=== PATIENT | male | born 1965 | race Caucasian/White ===

== ENCOUNTER 2020-11-29 13:42 | Emergency (ER) | payer OTHER, SELFPAY ==
[2020-11-29 14:05] VITALS: BP 141/82; PULSE 95; RESP 18; TEMP 37.2; O2SAT 97; BMI 26.4
--- NOTE | 2020-11-29 15:28 | ED.GENADULT ---
HPI - General Adult General Chief complaint: General Medical Stated complaint: no taste Time Seen by Provider: 11/29/20 15:01 Source: patient Mode of arrival: ambulatory Limitations: no limitations History of Present Illness HPI narrative: 55 y/o male with history of HTN presents to the ED c/o loss of sense of taste and smell that he noticed when he woke up this morning. 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 He denies any known COVID exposure and always wears his mask. He feels great except for his loss of taste and smell. No SOB, chest pain, fever, chills, N/V/D. MD complaint: loss of sense of taste and smell Onset (ago): hour(s) (8) Location: face and mouth Radiation: non-radiation Severity: mild Relieving factors: none Exacerbating factors: none Associated symptoms: denies other symptoms Treatments prior to arrival: none Related Data Allergies Allergy/AdvReac Type Severity Reaction Status Date / Time No Known Allergies Allergy Verified 11/29/20 14:05 Review of Systems Review of Systems: Constitutional: No Fever, No Chills ENT/Mouth: No sore throat, No Rhinorrhea Cardiovascular: No Chest Pain, No SOB Respiratory: No Cough, No Sputum Gastrointestinal: No Nausea, No Vomiting, No Diarrhea, No abdominal Pain Genitourinary: No Dysuria, No Urinary Frequency, No Hematuria Musculoskeletal: No joint pain, No Myalgias Skin: No Skin Lesions, No rash Neuro: No Weakness, No Numbness, No Dizziness, No Headache Heme/Lymph: No Lymphadenopathy PMFSH Past Medical History Medical History (Updated 11/29/20 @ 15:31 by OBEY Pressley) HTN (hypertension) Social History Social History Advance Directives: No Physical Exam Vital Signs: Vital Signs: Last Vital Signs Temp 98.9 F 11/29/20 14:05 Pulse 95 11/29/20 14:05 Resp 18 11/29/20 14:05 BP 141/82 H 11/29/20 14:05 Pulse Ox 97 11/29/20 14:05 Body Mass Index 26.4 Appearance: Alert. Oriented X3. No acute distress. HEENT: normal inspection CVS: Normal heart rate and rhythm. Pulses normal. Respiratory: No respiratory distress. Lungs CTAB Skin: Skin warm and dry. Normal skin color. Normal skin turgor. No rashes. Extremities: atraumatic, no edema Neuro: Oriented X 3. No motor deficit. No sensory deficit. Course Course Course Narrative: 55 y/o male presenting with isolated symptoms of loss of sense of taste and smell that started today. Symptoms are concerning for COVID however given they are new onset today there may not be enough viral load to detect the virus when tested today. Patient has been counseled on this concern and possibility of a false negative. Encouraged to get retested if symptoms persist. Discharge Plan Discharge Clinical Impression: Anosmia Patient Disposition: Home, Self-Care Instructions: COVID-19 (Coronavirus Disease 2019) (ED) Additional Instructions: You were tested for COVID-19 today. We will call you with the results this afternoon. Even if your results are NEGATIVE, it could be because your symptoms just started today and there may not be enough virus in your nose to detect. Recommend getting retested if it is negative today. Interventions: ED Discharge Assessment Last Done: 11/29/20 15:45 Discharge Date/Time: 11/29/20 15:53
[2020-11-29 15:55] LABS: Influenza A PCR NEGATIVE (Negative); Influenza B PCR NEGATIVE (Negative); Resp Syncy Virus RNA Qual PCR NEGATIVE (Negative); SARS COV2 PCR INHOUSE POSITIVE (Negative)
== END 2020-11-29 15:53 | disposition home or self-care (01) ==
PROVIDERS: Physician Assistant; Emergency Provider Emergency Medicine Emergency Medical Services; PCP Internal Medicine
DX: U07.1 COVID-19 (principal); R43.0 Anosmia; I10 Essential (primary) hypertension
CPT/HCPCS: 0241U; 36415; 99283

== ENCOUNTER 2020-12-11 08:59 | Outpatient (REF) | payer OTHER, SELFPAY ==
[2020-12-11 09:27] LABS: COVID-19 Test Positive (Negative); IDNOW Serial# 55D5AD1C
== END 2020-12-11 09:00 | disposition home or self-care (01) ==
LOC: HO.LAB 08:59
PROVIDERS: Visit Provider Internal Medicine
DX: Z20.822 Contact with and (suspected) exposure to COVID-19 (principal)
CPT/HCPCS: 36415; 87635; C9803

== ENCOUNTER 2021-03-31 11:32 | Outpatient (REF) | payer OTHER, SELFPAY | END 2021-03-31 11:33 | disposition home or self-care (01) | LOC: HO.LAB 11:32 | PROVIDERS: PCP Internal Medicine; Visit Provider Internal Medicine | DX: Z20.822 Contact with and (suspected) exposure to COVID-19 (principal) | CPT/HCPCS: C9803; U0003; U0005 ==

== ENCOUNTER 2021-11-13 18:09 | Emergency (ER) | payer OTHER, SELFPAY ==
[2021-11-13 18:32] VITALS: BP 159/91; PULSE 79; RESP 18; TEMP 36.9; O2SAT 98; BMI 26.4
[2021-11-13 18:41] LABS: MANUAL DIFF FLAG NO
[2021-11-13 18:44] LABS: Basophils Percent Auto 0.4 % (0-2); Eosinophils Absolute Auto 0.1 X10*3/uL (0.0-0.4); Eosinophils Percent Auto 1.3 % (0-4); Hematocrit 38.9 % (42.0-52.0); Hemoglobin 13.5 g/dl (14.0-18.0); Imm Gran Abs Auto 0.02 X10*3/uL (0.00-0.03); Imm Gran Pct Auto 0.2 % (0.0-0.4); Lymphocytes Absolute Auto 3.4 X10*3/uL (1.2-4.9); Lymphocytes Percent Auto 38.4 % (20-40); Mean Corpuscular HGB Conc 34.7 g/dl (31.0-36.0); Mean Corpuscular Hemoglobin 29.9 pg (27.0-33.0); Mean Corpuscular Volume 86.3 fL (80.0-98.0); Mean Platelet Volume 9.8 fL (9.4-12.4); Monocytes Absolute Auto 0.5 X10*3/uL (0.1-1.2); Monocytes Percent Auto 5.6 % (2-11); Neutrophils Absolute Auto 4.8 x10*3/uL (2.0-8.3); Neutrophils Percent Auto 54.1 % (45-73); Platelet Count 317 X10*3/uL (160-400); Red Blood Count 4.51 X10*6/uL (4.60-5.80); White Blood Count 8.9 X10*3/uL (4.8-10.8)
[2021-11-13 18:59] LABS: Alanine Aminotransferase 21 U/L (0-40); Albumin Level 4.4 g/dL (3.5-5.0); Alkaline Phosphatase 65 U/L (39-117); Anion Gap 12 (12-20); Aspartate Amino Transferase 20 U/L (5-37); Bilirubin Direct < 0.2 mg/dL (0.0-0.5); Bilirubin Total 0.3 mg/dL (0.0-1.0); Blood Urea Nitrogen 14 mg/dL (9-16); Calcium 9.4 mg/dL (8.4-10.2); Carbon Dioxide 27 mmol/L (22-29); Chloride 102 mmol/L (96-108); Creatinine Clr Calc Pharmacy 84.2; Estimated Glomerular Filt Rate > 60; Glucose Random 222 mg/dL (60-115); Lipase 59 U/L (8-78); Potassium 3.7 mmol/L (3.3-5.1); Sodium 137 mmol/L (135-145); Total Protein 7.6 g/dL (6.5-8.0)
--- NOTE | 2021-11-13 22:00 | ED_ITS ---
HPI - Abdominal Pain General Chief Complaint: Abdominal Pain Stated Complaint: prolonged abd pain rt Time Seen by Provider: 11/13/21 21:52 Related Data Previous Rx's Medication Instructions Recorded hyoscyamine sulfate 0.125 mg 0.125 mg PO QID #7 tab 11/14/21 disintegrating tablet Allergies Allergy/AdvReac Type Severity Reaction Status Date / Time No Known Allergies Allergy Verified 11/13/21 18:32 [facility] Past Medical History Medical History (Updated 11/14/21 @ 00:09 by Koki Arango MD) HTN (hypertension) Social History Social History Advance Directives: No Physical Exam ED Vital Signs: Vital Signs - 24 hr 11/13/21 18:32 Temperature 98.5 F Pulse Rate 79 Respiratory Rate 18 Blood Pressure 159/91 H Pulse Oximetry 98 BMI result Body Mass Index 26.4 Course Course Course Narrative: I discussed the labs with the patient, at this time, patient's physical exam is benign, no need for imaging. Urinalysis negative for UTI and blood, ureterolithiasis not suspected. MDM - Abdominal Pain Lab Data Result diagrams: 11/13/21 18:37 11/13/21 18:37 Labs: Lab Results 11/13/21 11/13/21 11/13/21 Range/Units 18:37 18:37 23:21 WBC 8.9 (4.8-10.8) X10*3/uL RBC 4.51 L (4.60-5.80) X10*6/uL Hgb 13.5 L (14.0-18.0) g/dl Hct 38.9 L (42.0-52.0) % MCV 86.3 (80.0-98.0) fL MCH 29.9 (27.0-33.0) pg MCHC 34.7 (31.0-36.0) g/dl RDW 12.0 (11.0-16.0) % Plt Count 317 (160-400) X10*3/uL MPV 9.8 (9.4-12.4) fL Immature Gran % (Auto) 0.2 (0.0-0.4) % Neut % (Auto) 54.1 (45-73) % Lymph % (Auto) 38.4 (20-40) % [place] % (Auto) 5.6 (2-11) % Eos % (Auto) 1.3 (0-4) % Baso % (Auto) 0.4 (0-2) % Lymph # (Auto) 3.4 (1.2-4.9) X10*3/uL [place] # (Auto) 0.5 (0.1-1.2) X10*3/uL Eos # (Auto) 0.1 (0.0-0.4) X10*3/uL Baso # (Auto) 0.0 (0.0-0.2) X10*3/uL Abs Immat Gran (auto) 0.02 (0.00-0.03) X10*3/uL Absolute Neuts (auto) 4.8 (2.0-8.3) x10*3/uL Absolute Nucleated RBC 0.000 (0.0-0.012) X10*3/uL Nucleated RBC % (auto) 0.0 (0.0-0.2) /100WBC Sodium 137 (135-145) mmol/L Potassium 3.7 (3.3-5.1) mmol/L Chloride 102 (96-108) mmol/L Carbon Dioxide 27 (22-29) mmol/L Anion Gap 12 (12-20) BUN 14 (9-16) mg/dL Creatinine 1.08 (0.5-1.4) mg/dL Estim Creat Clear Calc 84.2 Estimated GFR > 60 Random Glucose 222 H (60-115) mg/dL Calcium 9.4 (8.4-10.2) mg/dL Total Bilirubin 0.3 (0.0-1.0) mg/dL Direct Bilirubin < 0.2 (0.0-0.5) mg/dL AST 20 (5-37) U/L ALT 21 (0-40) U/L Alkaline Phosphatase 65 (39-117) U/L Total Protein 7.6 (6.5-8.0) g/dL Albumin 4.4 (3.5-5.0) g/dL Lipase 59 (8-78) U/L Urine Color YELLOW Urine Appearance HAZY Urine pH 7.0 (5.0-8.0) Ur Specific [place] 1.015 (1.005-1.025) Urine Protein NEG (NEG-TRACE) MG/DL Urine Glucose (UA) NEG (NEG) MG/DL Urine Ketones NEG (NEG) MG/DL Urine Blood NEG (NEG) Urine Nitrite NEG (NEG) Ur Leukocyte Esterase NEG (NEG) Discharge Plan Discharge Clinical Impression: Abdominal pain Patient Disposition: Home, Self-Care Instructions: Abdominal Pain (ED) Additional Instructions: Please follow-up with your primary care physician tomorrow. If you have any worsening or new symptoms, please return to the emergency room or call 911 Prescriptions: New hyoscyamine sulfate 0.125 mg tablet,disintegrating 0.125 mg PO QID Qty: 7 0RF
[2021-11-13 23:35] LABS: Appearance Urine HAZY; Color Urine YELLOW; Glucose Urine UA NEG (NEG); Leukocyte Esterase Urine NEG (NEG); Nitrite Urine NEG (NEG); Specific Gravity - Urine 1.015 (1.005-1.025); Urine Blood NEG (NEG); Urine Ketones NEG (NEG); Urine Protein NEG (NEG-TRACE)
[2021-11-14 00:25] VITALS: BP 134/85; PULSE 65; RESP 16; TEMP 36.7; O2SAT 99
== END 2021-11-14 00:30 | disposition home or self-care (01) ==
PROVIDERS: Emergency Provider Emergency Medicine
DX: R10.9 Unspecified abdominal pain (principal); I10 Essential (primary) hypertension
CPT/HCPCS: 36415; 80048; 80076; 81003; 83690; 85025; 99283; 99284

== ENCOUNTER 2022-03-30 16:33 | Emergency (ER) | payer OTHER, SELFPAY ==
--- NOTE | ~2022-03-30 | XR_ITS ---
EXAMINATION: XR CHEST CLINICAL INFORMATION: Chest pain and cough COMPARISON: None TECHNIQUE: 2 views of the chest were obtained. FINDINGS: Cardiac silhouette is normal in size. The lungs are well aerated. There is no lobar consolidation. No pleural effusion or pneumothorax. No acute osseous abnormality. XR/XR chest 2V IMPRESSION: No acute pulmonary pathology.
[2022-03-30 17:42] VITALS: BP 148/89; PULSE 72; RESP 18; TEMP 36.6; O2SAT 98; BMI 25.0
--- NOTE | 2022-03-30 17:45 | ECG_ITS ---
Test Reason : CHEST PAIN Blood Pressure : / mmHG Vent. Rate : 063 BPM Atrial Rate : 063 BPM P-R Int : 160 ms QRS Dur : 108 ms QT Int : 424 ms P-R-T Axes : 041 -06 013 degrees QTc Int : 433 ms Normal sinus rhythm Incomplete right bundle branch block Borderline ECG No previous ECGs available Referred By: Generic ED Physician Electronically Signed By:SHAQUILLE BARRIOS
[2022-03-30 18:01] LABS: MANUAL DIFF FLAG NO
[2022-03-30 18:05] LABS: Basophils Absolute Auto 0.1 X10*3/uL (0.0-0.2); Basophils Percent Auto 0.7 % (0-2); Eosinophils Absolute Auto 0.1 X10*3/uL (0.0-0.4); Eosinophils Percent Auto 0.5 % (0-4); Hematocrit 39.4 % (42.0-52.0); Hemoglobin 13.4 g/dl (14.0-18.0); Imm Gran Abs Auto 0.04 X10*3/uL (0.00-0.03); Imm Gran Pct Auto 0.3 % (0.0-0.4); Mean Corpuscular Hemoglobin 29.1 pg (27.0-33.0); Mean Corpuscular Volume 85.5 fL (80.0-98.0); Monocytes Percent Auto 15.4 % (2-11); Neutrophils Absolute Auto 2.4 x10*3/uL (2.0-8.3); Neutrophils Percent Auto 18.1 % (45-73); Red Blood Count 4.61 X10*6/uL (4.60-5.80); Red Cell Distribution Width 11.8 % (11.0-16.0); SCAN SMEAR FLAG 1; WBC ABN SCTR 1
[2022-03-30 18:06] LABS: Platelet Count 79 X10*3/uL (160-400)
[2022-03-30 18:07] LABS: Lymphocytes Absolute Auto 8.6 X10*3/uL (1.2-4.9); WBC ABN SCTR FOR CBC 1
[2022-03-30 18:16] LABS: Anion Gap 13 (12-20); Blood Urea Nitrogen 23 mg/dL (9-16); Calcium 8.6 mg/dL (8.4-10.2); Carbon Dioxide 27 mmol/L (22-29); Chloride 103 mmol/L (96-108); Creatinine Clr Calc Pharmacy 90.9; Estimated Glomerular Filt Rate > 60; Glucose Random 103 mg/dL (60-115); Potassium 3.3 mmol/L (3.3-5.1); Sodium 140 mmol/L (135-145)
[2022-03-30 18:17] LABS: COVID-19 Test Negative (Negative)
[2022-03-30 18:22] LABS: Troponin-I High Sensitivity < 3.5 ng/L (<3.5-35.0)
[2022-03-30 18:50] LABS: White Blood Count 13.2 X10*3/uL (4.8-10.8)
[2022-03-30 21:21] VITALS: BP 155/95; PULSE 68; RESP 16; TEMP 36.5; O2SAT 98
[2022-03-30 22:48] VITALS: BP 156/90; PULSE 63; RESP 18; TEMP 37.2; O2SAT 98
[2022-03-30 22:54] LABS: Alanine Aminotransferase 103 U/L (0-40); Alkaline Phosphatase 72 U/L (39-117); Aspartate Amino Transferase 107 U/L (5-37); Bilirubin Direct 0.2 mg/dL (0.0-0.5); Bilirubin Total 0.4 mg/dL (0.0-1.0); Total Protein 7.2 g/dL (6.5-8.0)
[2022-03-30 23:14] LABS: Lipase 58 U/L (8-78)
--- NOTE | 2022-03-30 23:27 | ED.GENADULT ---
HPI - General Adult General Chief complaint: General Medical Stated complaint: Pain All Over Time Seen by Provider: 03/30/22 22:21 Source: patient Mode of arrival: ambulatory Limitations: no limitations History of Present Illness HPI narrative: Patient presents emergency department for evaluation of viral type symptoms. He reports onset to be 1 week ago while he was in the [facility] [place]. However over the past 3 days his symptoms have been more constant. He is experiencing tactile fevers, body aches, epigastric discomfort, intermittently feeling short of breath, intermittent cough. He denies any known sick contacts, exposure to insects, or possible bites. He has no rashes. Denies any recent unintentional weight loss, night sweats, shaking chills. Denies chest pain, palpitations, dizziness, lightheadedness, nausea, vomiting, diarrhea, constipation Related Data Previous Rx's Medication Instructions Recorded hyoscyamine sulfate 0.125 mg 0.125 mg PO QID #7 tabs 11/14/21 disintegrating tablet Allergies Allergy/AdvReac Type Severity Reaction Status Date / Time No Known Allergies Allergy Verified 03/30/22 17:42 Review of Systems Review of Systems: Constitutional: No weight loss. Positive tactile fever. No chills. No weakness. Positive fatigue. Positive body aches Eye: No swelling. No redness. ENT: No sore throat. No rhinorrhea. No nasal congestion. No difficulty swallowing. Skin: No rash. No itching. Cardiovascular: No chest pain. No chest pressure. No palpitations. No pedal edema. Respiratory: Positive intermittent shortness of breath. Positive cough. No sputum production. Gastrointestinal: No anorexia. No nausea. No vomiting. No diarrhea. Positive abdominal pain. No blood in stool. Genitourinary: No burning micturition. No urinary frequency. No incontinence. Neurologic: No headache. No dizziness. No pre-syncope/ syncope. No unilateral weakness. No ataxia. No numbness. No tingling. No change in bowel or bladder control. Musculoskeletal: Positive body aches No back pain. No joint pain. No stiffness. Hematologic: No bleeding. No bruising. Lymphatics: No enlarged lymph nodes. Psychiatric:No depression. No anxiety. Endocrine: No polyuria. No polydipsia. Yes all other systems are reviewed and are negative PMFSH Past Medical History Attestation statement: The following information was validated with the patient. Source: old records reviewed Medical History HTN (hypertension) Social History Social History Advance Directives: No Advance Directives Information Provided: No Physical Exam ED Vital Signs: Vital Signs - 24 hr 03/30/22 17:42 03/30/22 21:21 03/30/22 22:48 Temperature 97.9 F 97.7 F 98.9 F Pulse Rate 72 68 63 Respiratory Rate 18 16 18 Blood Pressure 148/89 H 155/95 H 156/90 H Pulse Oximetry 98 98 98 Oxygen Delivery Method Room Air Room Air Room Air BMI result Body Mass Index 25.0 Appearance: Alert.?Oriented to person, place and time. No acute distress.?Normal affect. Eyes: Pupils equal, round and reactive to light.? ENT: Pharynx normal.?? Neck: Normal inspection.? Neck supple.??No cervical adenopathy CVS: Heart sounds normal. Normal heart rate and rhythm.? Pulses normal.?? Respiratory: No respiratory distress.? Lung sounds clear to auscultation bilaterally?? Abdomen: Soft and non-tender. Normoactive bowel sounds. .?? Skin: Skin warm and dry.? Normal skin color.? ? Extremities: No lower extremity edema.? No calf ttp? Neuro: Moves all extremities spontaneously. Sensation intact bilaterally. CN II-XII intact. No focal neuro deficits. Ambulates with normal steady gait. Course Course Course Narrative: Patient is a 48-year-old male with a past medical history of hypertension, reports a remote history of possible hepatitis C as a child but no complications or issues as an adult. He presents emergency department for evaluation of viral type symptoms. He is overall well appearing, vital signs are stable. No apparent distress. He has had recent travel to [facility]. Had COVID-19 testing which was negative. Troponin <3.5, EKG reveals normal sinus rhythm with incomplete right bundle-branch block, no acute ischemic findings, no prior EKGs for comparison. Serum lab significant for thrombocytopenia, leukocytosis, lymphocytosis, elevated AST and ALT. At this time the etiology of symptoms is unclear. Seems most consistent with viral syndrome given presenting complaints. Discussed plan of care with patient, advised this may be due to viral syndromes and damage to [place], insect borne illnesses/viruses, prior to discharge will obtain tick-borne illness panel, mono, HIV testing, hepatitis panel. Advised no NSAIDs or aspirin. Tylenol to be used only if really needed for fever/pain, but try to avoid. Advised outpatient follow-up with primary care provider within 48 hours to have repeat labs obtained. Discussed worsens when symptoms return back to emergency department for. All questions were answered, and patient was discharged home in stable condition. Medical Decision Making Medical Records Medical records reviewed: Yes I reviewed the patient's medical records. Lab Data Lab results reviewed: Yes I reviewed the patient's lab results. Result diagrams: 03/30/22 17:55 03/30/22 17:55 Labs: Lab Results 03/30/22 03/30/22 03/30/22 Range/Units 17:55 17:55 17:55 WBC 13.2 H (4.8-10.8) X10*3/uL RBC 4.61 (4.60-5.80) X10*6/uL Hgb 13.4 L (14.0-18.0) g/dl Hct 39.4 L (42.0-52.0) % MCV 85.5 (80.0-98.0) fL MCH 29.1 (27.0-33.0) pg MCHC 34.0 (31.0-36.0) g/dl RDW 11.8 (11.0-16.0) % Plt Count 79 L D (160-400) X10*3/uL MPV 11.0 (9.4-12.4) fL Immature Gran % (Auto) 0.3 (0.0-0.4) % Neut % (Auto) 18.1 L (45-73) % Lymph % (Auto) 65.0 H (20-40) % Cole % (Auto) 15.4 H (2-11) % Eos % (Auto) 0.5 (0-4) % Baso % (Auto) 0.7 (0-2) % Lymph # (Auto) 8.6 H (1.2-4.9) X10*3/uL [place] # (Auto) 2.0 H (0.1-1.2) X10*3/uL Eos # (Auto) 0.1 (0.0-0.4) X10*3/uL Baso # (Auto) 0.1 (0.0-0.2) X10*3/uL Abs Immat Gran (auto) 0.04 H (0.00-0.03) X10*3/uL Absolute Neuts (auto) 2.4 (2.0-8.3) x10*3/uL Absolute Nucleated RBC 0.000 (0.0-0.012) X10*3/uL Nucleated RBC % (auto) 0.0 (0.0-0.2) /100WBC Sodium 140 (135-145) mmol/L Potassium 3.3 (3.3-5.1) mmol/L Chloride 103 (96-108) mmol/L Carbon Dioxide 27 (22-29) mmol/L Anion Gap 13 (12-20) BUN 23 H D (9-16) mg/dL Creatinine 1.00 (0.5-1.4) mg/dL Estim Creat Clear Calc 90.9 Estimated GFR > 60 Random Glucose 103 D (60-115) mg/dL Calcium 8.6 D (8.4-10.2) mg/dL Total Bilirubin 0.4 (0.0-1.0) mg/dL Direct Bilirubin 0.2 (0.0-0.5) mg/dL AST 107 H (5-37) U/L ALT 103 H (0-40) U/L Alkaline Phosphatase 72 (39-117) U/L Troponin I High Sens < 3.5 (<3.5-35.0) ng/L Total Protein 7.2 (6.5-8.0) g/dL Albumin 4.0 (3.5-5.0) g/dL Lipase 58 (8-78) U/L COVID-19 (JASKARAN) (Negative) COVID-19 Clin Com Monoscreen (Negative) 03/30/22 03/31/22 Range/Units 17:55 00:07 WBC (4.8-10.8) X10*3/uL RBC (4.60-5.80) X10*6/uL Hgb (14.0-18.0) g/dl Hct (42.0-52.0) % MCV (80.0-98.0) fL MCH (27.0-33.0) pg MCHC (31.0-36.0) g/dl RDW (11.0-16.0) % Plt Count (160-400) X10*3/uL MPV (9.4-12.4) fL Immature Gran % (Auto) (0.0-0.4) % Neut % (Auto) (45-73) % Lymph % (Auto) (20-40) % [place] % (Auto) (2-11) % Eos % (Auto) (0-4) % Baso % (Auto) (0-2) % Lymph # (Auto) (1.2-4.9) X10*3/uL [place] # (Auto) (0.1-1.2) X10*3/uL Eos # (Auto) (0.0-0.4) X10*3/uL Baso # (Auto) (0.0-0.2) X10*3/uL Abs Immat Gran (auto) (0.00-0.03) X10*3/uL Absolute Neuts (auto) (2.0-8.3) x10*3/uL Absolute Nucleated RBC (0.0-0.012) X10*3/uL Nucleated RBC % (auto) (0.0-0.2) /100WBC Sodium (135-145) mmol/L Potassium (3.3-5.1) mmol/L Chloride (96-108) mmol/L Carbon Dioxide (22-29) mmol/L Anion Gap (12-20) BUN (9-16) mg/dL Creatinine (0.5-1.4) mg/dL Estim Creat Clear Calc Estimated GFR Random Glucose (60-115) mg/dL Calcium (8.4-10.2) mg/dL Total Bilirubin (0.0-1.0) mg/dL Direct Bilirubin (0.0-0.5) mg/dL AST (5-37) U/L ALT (0-40) U/L Alkaline Phosphatase (39-117) U/L Troponin I High Sens (<3.5-35.0) ng/L Total Protein (6.5-8.0) g/dL Albumin (3.5-5.0) g/dL Lipase (8-78) U/L COVID-19 (JASKARAN) Negative (Negative) COVID-19 Clin Com See Note Monoscreen Negative (Negative) Imaging Data Chest x-ray: Radiologist's impression: XR/XR chest 2V IMPRESSION: No acute pulmonary pathology. ECG Data Attestation: I personally reviewed and interpreted this ECG as follows: Prior ECG tracings: not available for review Interpretation: Rate: 63 Rhythm:? Normal sinus rhythm, incomplete right bundle-branch block [place]:? Normal Normal P waves.? Normal [place].?? Normal QRS complex.?? ST T wave :??No ST elevation, no ST depression, no T-wave inversion qTC: 433 prior studies:? None available for review The study has been interpreted contemporaneously by me. Discharge Plan Discharge Clinical Impression: Acute viral syndrome Patient Disposition: Home, Self-Care Instructions: Viral Syndrome (ED) Additional Instructions: As we discussed, your symptoms seem most consistent with a viral infection. This may be due to your recent travel, or possible exposures. As we discussed we are sending off some further blood testing to explore alternative viral infections as a cause for your blood work abnormalities. This includes tick-borne illnesses, mono, HIV, hepatitis panel It is important to contact your primary care provider tomorrow to arrange for a follow-up visit in 2 days as you need to have your blood work repeated. Please advise them of the following blood work abnormalities, abnormal CBC, platelet count 79, elevated liver function tests; AST 107, ALT 103. Avoid all NSAIDs and aspirin. You may take Tylenol only if really needed for body aches. Be sure to rest, stay plenty hydrated. Return to the emergency department for any new or worsening symptoms or concerns [place] discutimos, norris s?ntomas parecen m?s consistentes con barbi infecci?n viral. [place] puede deberse a james viaje reciente o a posibles exposiciones. [place] comentamos, enviaremos algunos an?lisis de ninoska adicionales para explorar infecciones virales alternativas luba causa de las anomal?as en los an?lisis de ninoska. [place] incluye enfermedades transmitidas por garrapatas, mono, VIH, panel de hepatitis Es importante que se comunique con james proveedor de atenci?n primaria ma?anne para programar barbi visita de seguimiento en 2 d?as, ya que necesita que le repitan los an?lisis de ninoska. Inf?rmeles sobre las siguientes anomal?as en los an?lisis de ninoska, CBC anormal, recuento de plaquetas 79, pruebas de funci?n hep?marek elevadas; AST 107, ALT 103. Evite todos los FRANCISCO y la aspirina. Puede dinh Tylenol solo si realmente lo necesita para los justin corporales. Aseg?rese de descansar, mant?ngase hillary hidratado. Regrese al departamento de emergencias por cualquier s?ntoma o inquietud nueva o que empeore Prescriptions: No Action hyoscyamine sulfate 0.125 mg tablet,disintegrating 0.125 mg PO QID Qty: 7 0RF Interventions: ED Discharge Assessment Last Done: 03/31/22 00:23 Discharge Date/Time: 03/31/22 00:23 Print Language: Frisian
[2022-03-31 00:32] LABS: Monotest Negative (Negative)
[2022-03-31 08:17] LABS: Hepatitis A Antibody IgG REACTIVE (Nonreactive); Hepatitis A Antibody IgM 0.19 Index (0-0.79); ~Hepatitis A Antibody IgM Nonreactive (Nonreactive)
[2022-03-31 08:27] LABS: HBS Num1 243.52 mIU/mL (0-7.99); HBc Num1 1.72 S/CO (0.00-0.79); HBsAGNum1 0.21 S/CO (0.00-0.99); HIV AB/AG Nonreactive (Nonreactive); HIV Num 1 0.08 S/CO (0.00-0.99); Hepatitis B Surface Antigen Negative (Negative); ~HepC Num1 0.05 S/CO (0.00-0.79); ~Hepatitis B Surface Antibody REACTIVE (Nonreactive); ~Hepatitis C Antibody Nonreactive (Nonreactive)
[2022-03-31 10:38] LABS: HBc Num2 1.68 S/CO; HBc Num3 1.86 S/CO; Hepatitis B Core Antibody Reactive (Nonreactive)
[2022-04-01 14:53] LABS: A. Phagocytphilium DNA,RT-PCR NOT DETECTED (NOT DETECTED); Babesia Microti DNA, RT-PCR NOT DETECTED (NOT DETECTED); Borrelia Miyamotoi,DNA RT-PCR NOT DETECTED (NOT DETECTED); E.Chaffeensis DNA RT-PCR NOT DETECTED (NOT DETECTED); Lyme(Borrelia ssp)DNA RT-PCR NOT DETECTED (NOT DETECTED)
[2022-04-02 12:28] LABS: Source-Tick borne disease BLOOD
== END 2022-03-31 00:23 | disposition home or self-care (01) ==
PROVIDERS: Nurse Practitioner Family; Emergency Provider Emergency Medicine; PCP Internal Medicine
DX: B34.9 Viral infection, unspecified (principal); Z20.822 Contact with and (suspected) exposure to COVID-19; M79.10 Myalgia, unspecified site; I10 Essential (primary) hypertension
CPT/HCPCS: 36415; 71046; 80048; 80076; 83690; 84484; 85025; 86308; 86704; 86706; 86708; 86709; 86803; 87340; 87389; 87635; 87798; 87801; 93005; 99283; 99284